=== PATIENT | female | born 1955 | race Caucasian/White ===

== ENCOUNTER → 2021-08-21 15:51 | Outpatient (CLI) | payer BC, SELFPAY ==
[2021-08-24 00:06] LABS: Chlamydia By Nucleic Acid AMP Negative (Negative)
[2021-08-24 08:14] LABS: Gonococcus By Nucleic Acid AMP Negative (Negative)
== END ==
PROVIDERS: PCP Nurse Practitioner Family; Visit Provider Nurse Practitioner Women's Health
DX: Z11.3 Encounter for screening for infections with a predominantly sexual mode of transmission (principal); N76.0 Acute vaginitis
CPT/HCPCS: 87070; 87077; 87205; 87491; 87591

== ENCOUNTER 2021-11-14 09:42 | Outpatient (CLI) | payer OTHER, SELFPAY ==
[2021-11-14 11:27] LABS: HIV - WCH Non-Reactive (Nonreactive); Hepatitis C Antibody Non-Reactive (Nonreactive); Syphilis Antibodies Non-reactive
[2021-11-15 15:59] LABS: HSV 1 IgG < 0.91 index (0.00-0.90)
== END 2021-11-14 23:59 | disposition home or self-care (01) ==
PROVIDERS: PCP Nurse Practitioner Family; Referring Provider Nurse Practitioner Women's Health; Visit Provider Nurse Practitioner Women's Health
DX: N76.0 Acute vaginitis (principal)
CPT/HCPCS: 36415; 86695; 86696; 86703; 86780; 86803; 87070; 87077; 87205